=== PATIENT | female | born 1985 | race Caucasian/White ===

== ENCOUNTER 2016-08-25 12:29 | Inpatient (IN) | payer OTHER ==
[2016-08-25 13:15] VITALS: BMI 22.4
--- NOTE | 2016-08-25 17:58 | HP ---
Admission ROS [facility] Chief Complaint: needs rehab to stop using cocaine Allergies/Adverse Reactions: Allergies Allergy/AdvReac Type Severity Reaction Status Date / Time No Known Allergies Allergy Verified 08/25/16 12:59 History of Present Illness: 31 y/o woman with hx. of drug dependence is admitted to rehab.Pt. is currently attending [facility], her attendance is poor therefore needs to be in rehab for cocaine. Exam Limitations: No Limitations - Ebola screening Have you traveled outside of the country in the last 21 days: No Have you had contact with anyone from an Ebola affected area: No Have you been sick,other than usual withdrawal symptoms: No - Review of Systems Constitutional: No Symptoms Reported EENT: reports: No Symptoms Reported Respiratory: reports: Cough Cardiac: reports: No Symptoms Reported GI: reports: Nausea : reports: No Symptoms Reported Musculoskeletal: reports: No Symptoms Reported Integumentary: reports: No Symptoms Reported Neuro: reports: No Symptoms reported Endocrine: reports: No Symptoms Reported Hematology: reports: No Symptoms Reported Psychiatric: reports: No Sypmtoms Reported Other Systems: Reviewed and Negative Patient History - Patient Medical History Hx Anemia: No Hx Asthma: No Hx Chronic Obstructive Pulmonary Disease (COPD): No Hx Cancer: No Hx Cardiac Disorders: No (? murmur) Hx Congestive Heart Failure: No Hx Hypertension: No Hx Hypercholesterolemia: No Hx Pacemaker: No HX Cerebrovascular Accident: No Hx Seizures: No Hx Dementia: No Hx Diabetes: No Hx Gastrointestinal Disorders: No Hx Liver Disease: No Hx Genitourinary Disorders: No Hx Sexually Transmitted Disorders: No Hx Renal Disease (ESRD): No Hx Thyroid Disease: No Hx Human Immunodeficiency Virus (HIV): No Hx Hepatitis C: No Hx Depression: Yes Hx Suicide Attempt: No Hx Bipolar Disorder: No Hx Schizophrenia: No - Patient Surgical History Past Surgical History: Yes Hx Section: Yes (1x) - PPD History Previous Implant?: Yes Documented Results: Negative w/o proof Implanted On Prior [facility] Admission?: No PPD to be Administered?: Yes - Reproductive History Patient is a Female of Child Bearing Age (11 -55 yrs old): Yes Patient : No (pt. is post x 2 months) - Smoking Cessation Smoking history: Current every day smoker Aproximately how many cigarettes per day: 6 Hx Chewing Tobacco Use: No Initiated information on smoking cessation: Yes 'Breaking Loose' booklet given: 08/25/16 - Substance & Tx. History Hx Alcohol Use: No Hx Substance Use: Yes Substance Use Type: Cocaine Hx Substance Use Treatment: Yes (rehab in [facility]) - Substances Abused Crack Route: Smoking Frequency: Daily Amount used: $100.00 Age of first use: 16 Date of Last Use: 08/24/16 Family Disease History - Family Disease History Family Disease History: Diabetes: Grandparent (htn), Heart Disease: Grandparent , Other: Brother (alcohol,cocaine) Admission Physical Exam [facility] - Vital Signs Vital Signs: Vital Signs - 24 hr 08/25/16 12:52 Temperature 97.5 F L Pulse Rate 97 H Respiratory 20 Rate Blood Pressure 114/66 - Physical General Appearance: Yes: Within Normal Limits HEENTM: Yes: Within Normal Limits Respiratory: Yes: Chest Non-Tender, Lungs Clear, Normal Breath Sounds Neck: Yes: Supple Breast: Yes: Breast Exam Deferred Cardiology: Yes: Regular Rhythm, Regular Rate, S1, S2 Abdominal: Yes: Normal Bowel Sounds, Non Tender, Soft Genitourinary: Yes: Within Normal Limits Back: Yes: Within Normal Limits Musculoskeletal: Yes: Within Normal Limits Extremities: Yes: Within Normal Limits Neurological: Yes: Fully Oriented, Alert Integumentary: Yes: Within Normal Limits Lymphatic: Yes: Within Normal Limits - Diagnostic (1) Cocaine dependence, uncomplicated Current Visit: Yes Status: Acute (2) Opioid dependence on agonist therapy Current Visit: Yes Status: Acute Cleared for Admission [facility] - Detox or Rehab Claeared for Rehab Admission: Yes [facility] Breath Alcohol Content Breath Alcohol Content: 0 Urine Pregancy Test - Result Urine Test Results: Negative- NO Line Present Urine Drug Screen - Results Drug Screen Negative: No Urine Drug Screen Results: ZEYAD-Cocaine, OPI-Opiates, MTD-Methadone
[2016-08-25] MEDS ORDERED: MAG HYDROX/AL HYDROX/SIMETH 30 ML UNIT-DOSE CUP PO PRN (18:11)
[2016-08-25] MEDS ORDERED: MAGNESIUM CITRATE 300 ML BOTTLE PO PRN (18:11)
[2016-08-25] MEDS ORDERED: MENTHOL/PHENOL 1 EACH UD MM PRN (18:11)
[2016-08-25] MEDS ORDERED: ACETAMINOPHEN 325 MG TABLET (FP) PO PRN (18:11)
[2016-08-25] MEDS ORDERED: guaiFENesin/D-METHORPHAN HB 10 ML UNIT-DOSE CUPS PO PRN (18:11)
[2016-08-25] MEDS ORDERED: P-EPHED 60MG/TRIPROLIDI 2.5MG TABLET PO PRN (18:11)
[2016-08-25] MEDS ORDERED: LOPERAMIDE HCL 2 MG CAPSULE PO PRN (18:11)
[2016-08-25] MEDS ORDERED: MAGNESIUM HYDROX 2400MG/30ML ORAL SUSPENSION 30 ML CUP PO PRN (18:11)
[2016-08-25] MEDS ORDERED: METHADONE HCL 10 MG TABLET PO ONE (19:30)
[2016-08-25] MEDS: NICOTINE 14 MG/24 HOURS TOPICAL PATCH TD SCH (20:49)
[2016-08-25 22:49] LABS: URINE APPEARANCE SLCLOUDY; URINE BILIRUBIN NEGATIVE (NEGATIVE); URINE COLOR YELLOW; URINE GLUCOSE (UA) NEGATIVE (NEGATIVE); URINE KETONE NEGATIVE (NEGATIVE); URINE LEUK ESTERASE NEGATIVE (NEGATIVE); URINE NITRITE NEGATIVE (NEGATIVE); URINE PROTEIN NEGATIVE (NEGATIVE); URINE UROBILINOGEN NEGATIVE E.U./dl (0.2-1.0)
[2016-08-25 22:57] LABS: URINE BLOOD 1+ (NEGATIVE)
[2016-08-25 23:02] LABS: CALCIUM OXALATE CRYSTALS MANY /hpf (NONE SEEN); URINE MUCUS FEW; URINE RBC 5 /hpf (0-3); URINE WBC 2 /hpf (3-5)
[2016-08-25] MEDS: THIAMINE HCL 100 MG TABLET (FP) PO SCH (23:23)
[2016-08-26] MEDS ORDERED: METHADONE HCL 40 MG DISPERSABLE TABLET PO SCH (06:00)
[2016-08-26] MEDS ORDERED: TUBERCULIN PPD 5 TU/0.1ML VIAL ID ONE (06:27)
[2016-08-26] MEDS: NICOTINE 14 MG/24 HOURS TOPICAL PATCH TD SCH (09:11)
[2016-08-26] MEDS: PRENATAL VITAMINS W/ FOLIC ACID TABLET (FP) PO SCH (09:12)
[2016-08-26] MEDS: IBUPROFEN 400 MG TABLET (FP) PO PRN (09:12)
[2016-08-26 10:02] LABS: MCH 29.2 pg (25.7-33.7); MCHC 32.9 g/dl (32.0-36.0); MEAN CELL VOLUME 88.9 fl (80-96); MEAN PLT VOLUME 10.7 fl (7.5-11.1); PLATELET COUNT 143 K/MM3 (134-434); RDW 13.7 % (11.6-15.6); WHITE BLOOD COUNT 3.7 K/mm3 (4.0-10.0)
[2016-08-26 10:48] LABS: ALBUMIN 3.6 g/dl (3.4-5.0); ALK PHOS 59 U/L (45-117); ANION GAP 9 (8-16); BILIRUBIN,TOTAL 0.2 mg/dL (0.2-1.0); CALCIUM 9.5 mg/dL (8.5-10.1); CO2 29 mmol/L (21-32); GLUCOSE,RANDOM 90 mg/dL (74-106); SGOT/AST 13 U/L (15-37); SGPT/ALT 17 U/L (12-78); TOT PROT 6.4 g/dl (6.4-8.2)
[2016-08-26 11:27] LABS: SICKLE CELL SCREEN NEGATIVE (NEGATIVE)
--- NOTE | 2016-08-26 17:36 | EKG ---
Test Reason : Blood Pressure : / mmHG Vent. Rate : 061 BPM Atrial Rate : 061 BPM P-R Int : 142 ms QRS Dur : 126 ms QT Int : 436 ms P-R-T Axes : 006 048 017 degrees QTc Int : 438 ms NORMAL SINUS RHYTHM NON-SPECIFIC INTRA-VENTRICULAR CONDUCTION BLOCK ABNORMAL ECG WHEN COMPARED WITH ECG OF 25-AUG-2016 20:51, NO SIGNIFICANT CHANGE WAS FOUND Confirmed by NICOLE CANCHOLA, BRENT ([id number]) on 08/26/2016 5:35:48 PM Referred By: Confirmed By:BRENT RIVERA MD
--- NOTE | 2016-08-26 17:37 | EKG ---
Test Reason : Blood Pressure : / mmHG Vent. Rate : 075 BPM Atrial Rate : 075 BPM P-R Int : 146 ms QRS Dur : 132 ms QT Int : 388 ms P-R-T Axes : 036 053 045 degrees QTc Int : 433 ms NORMAL SINUS RHYTHM NON-SPECIFIC INTRA-VENTRICULAR CONDUCTION BLOCK ABNORMAL ECG NO PREVIOUS ECGS AVAILABLE Confirmed by NICOLE CANCHOLA, BRENT ([id number]) on 08/26/2016 5:37:27 PM Referred By: Confirmed By:BRENT RIVERA MD
[2016-08-26] MEDS: THIAMINE HCL 100 MG TABLET (FP) PO SCH (21:23)
[2016-08-26] MEDS: diphenhydrAMINE HCL 50 MG CAPSULE PO PRN (21:24)
[2016-08-27] MEDS ORDERED: METHADONE 40 MG, METHADONE 10 MG PO SCH (06:00)
[2016-08-27] MEDS ORDERED: METHADONE HCL 10 MG TABLET PO SCH (06:00)
[2016-08-27] MEDS ORDERED: METHADONE HCL 10 MG TABLET ONE (06:02)
[2016-08-27] MEDS ORDERED: METHADONE HCL 40 MG DISPERSABLE TABLET ONE (06:02)
[2016-08-27] MEDS: PRENATAL VITAMINS W/ FOLIC ACID TABLET (FP) PO SCH (10:37)
[2016-08-27] MEDS: NICOTINE 14 MG/24 HOURS TOPICAL PATCH TD SCH (10:37)
--- NOTE | 2016-08-27 14:05 | HP ---
Psychiatrist Admission - Data Date of interview: 08/27/16 Admission source: [facility] Identifying data: This is the first admission to [address] [place] [address] for this 31 yo H single mother of 4 (2 months old baby girl resides with her father),patient lost her custody of 3 old kids.She resides with boyfriend,supported by him. Medical History: C section. Psychiatric History: denies Physical/Sexual Abuse/Trauma History: not willing to discuss Vital Signs: Vital Signs - 24 hr 08/27/16 08/27/16 08/27/16 00:30 03:30 06:31 Temperature 98.0 F Pulse Rate 75 Respiratory 18 18 16 Rate Blood Pressure 103/68 Allergies/Adverse Reactions: Allergies Allergy/AdvReac Type Severity Reaction Status Date / Time No Known Allergies Allergy Verified 08/25/16 12:59 Date of last physical exam: 08/25/16 Concur with the findings of this exam: Yes - Substance Abuse/Tx History Hx Alcohol Use: Yes (reports drinking since 8 yo) Hx Substance Use: Yes (heroin and crack/cocaine since 16 yo,(crack $100 daily)) Substance Use Type: Alcohol, Cocaine, Heroin Hx Substance Use Treatment: Yes (completed [employer] program) - Admission Criteria Previous failed treatment: Yes Poor recovery environment: Yes Comorbidities: Yes Lacks judgement: Yes Mental Status Exam - Mental Status Exam Alert and Oriented to: Time, Place, Person Cognitive Function: Grossly Intact Patient Appearance: Unkempt Mood: Anxious, Apprehensive, Irritable Affect: Mood Congruent, Labile Patient Behavior: Restless, Impulsive Speech Pattern: Clear Voice Loudness: Normal Thought Process: Goal Oriented Thought Disorder: Not Present Hallucinations: Denies Suicidal Ideation: Denies Homicidal Ideation: Denies Insight/Judgement: Fair Sleep: Fair Appetite: Fair Muscle strength/Tone: Normal Gait/Station: Normal Psychiatric Findings - Problem List ([place] 1, 2,3) (1) Cocaine dependence, uncomplicated Current Visit: Yes Status: Chronic (2) Opioid dependence on agonist therapy Current Visit: Yes Status: Chronic (3) Alcohol dependence Current Visit: Yes Status: Chronic - Initial Treatment Plan Initial Treatment Plan: will monitor progress.
[2016-08-27] MEDS: THIAMINE HCL 100 MG TABLET (FP) PO SCH (21:41)
[2016-08-28] MEDS ORDERED: METHADONE HCL 40 MG DISPERSABLE TABLET PO SCH (06:00)
[2016-08-28] MEDS ORDERED: METHADONE HCL 40 MG DISPERSABLE TABLET ONE (06:06)
[2016-08-28] MEDS ORDERED: METHADONE HCL 10 MG TABLET ONE (06:06)
[2016-08-28] MEDS: METHADONE 40 MG, METHADONE 20 MG PO SCH (06:34)
[2016-08-28] MEDS: PRENATAL VITAMINS W/ FOLIC ACID TABLET (FP) PO SCH (10:06)
[2016-08-28] MEDS: NICOTINE 14 MG/24 HOURS TOPICAL PATCH TD SCH ×2 (10:06→10:08)
[2016-08-28] MEDS: NICOTINE POLACRILEX 2 MG GUM BUC PRN (10:09)
[2016-08-28] MEDS: diphenhydrAMINE HCL 50 MG CAPSULE PO PRN (21:34)
[2016-08-28] MEDS: THIAMINE HCL 100 MG TABLET (FP) PO SCH (21:34)
[2016-08-29] MEDS ORDERED: METHADONE HCL 10 MG TABLET ONE (05:44)
[2016-08-29] MEDS ORDERED: METHADONE HCL 40 MG DISPERSABLE TABLET ONE (05:44)
[2016-08-29] MEDS: METHADONE 40 MG, METHADONE 20 MG PO SCH (06:47)
[2016-08-29] MEDS: PRENATAL VITAMINS W/ FOLIC ACID TABLET (FP) PO SCH (09:55)
[2016-08-29] MEDS: NICOTINE 14 MG/24 HOURS TOPICAL PATCH TD SCH (09:55)
[2016-08-29] MEDS: NICOTINE POLACRILEX 2 MG GUM BUC PRN ×2 (09:56→21:31)
[2016-08-29] MEDS: THIAMINE HCL 100 MG TABLET (FP) PO SCH (21:30)
[2016-08-29] MEDS: diphenhydrAMINE HCL 50 MG CAPSULE PO PRN (21:30)
[2016-08-30] MEDS ORDERED: METHADONE HCL 10 MG TABLET ONE (03:17)
[2016-08-30] MEDS ORDERED: METHADONE HCL 40 MG DISPERSABLE TABLET ONE (03:17)
[2016-08-30] MEDS: METHADONE 40 MG, METHADONE 20 MG PO SCH (06:43)
[2016-08-30] MEDS: NICOTINE 14 MG/24 HOURS TOPICAL PATCH TD SCH (10:10)
[2016-08-30] MEDS: PRENATAL VITAMINS W/ FOLIC ACID TABLET (FP) PO SCH (10:11)
[2016-08-30] MEDS: NICOTINE POLACRILEX 2 MG GUM BUC PRN (10:13)
[2016-08-30] MEDS: IBUPROFEN 400 MG TABLET (FP) PO PRN (15:19)
[2016-08-30] MEDS: THIAMINE HCL 100 MG TABLET (FP) PO SCH (21:24)
[2016-08-30] MEDS: diphenhydrAMINE HCL 50 MG CAPSULE PO PRN (21:25)
[2016-08-31] MEDS ORDERED: METHADONE HCL 40 MG DISPERSABLE TABLET ONE (05:49)
[2016-08-31] MEDS ORDERED: METHADONE HCL 10 MG TABLET ONE (05:49)
[2016-08-31] MEDS: METHADONE 40 MG, METHADONE 20 MG PO SCH (06:02)
[2016-08-31] MEDS: PRENATAL VITAMINS W/ FOLIC ACID TABLET (FP) PO SCH (10:02)
[2016-08-31] MEDS: NICOTINE 14 MG/24 HOURS TOPICAL PATCH TD SCH (10:02)
[2016-08-31] MEDS: THIAMINE HCL 100 MG TABLET (FP) PO SCH (21:16)
[2016-08-31] MEDS: NICOTINE POLACRILEX 2 MG GUM BUC PRN (21:18)
[2016-08-31] MEDS: diphenhydrAMINE HCL 50 MG CAPSULE PO PRN (21:18)
[2016-09-01] MEDS ORDERED: METHADONE HCL 10 MG TABLET ONE (03:44)
[2016-09-01] MEDS ORDERED: METHADONE HCL 40 MG DISPERSABLE TABLET ONE (03:44)
[2016-09-01] MEDS: METHADONE 40 MG, METHADONE 20 MG PO SCH (06:35)
[2016-09-01 07:19] VITALS: BP 109/72; PULSE 76; TEMP 98.1
--- NOTE | 2016-09-01 09:46 | PN ---
Psychiatric Progress Note Vital Signs: Vital Signs Period Temp Pulse Resp BP Sys/Zapata Pulse Ox Last 24 Hr 98.1 F 76 18-18 109/72 Date of Session: 09/01/16 Chief Complaint:: Discharge visit HPI: Patient addressed Alcohol,Cocaine and Opioid dependence. ROS: unremarkable Current Medications: Active Medications Generic Name Dose Route Start Last Admin Trade Name Freq PRN Reason Stop Dose Admin Acetaminophen 650 mg 08/25/16 18:11 Tylenol - PO Q4H PRN PAIN Al Hydroxide/Mg Hydroxide 30 ml 08/25/16 18:11 Mylanta Oral Suspension - PO Q6H PRN DYSPEPSIA Diphenhydramine HCl 50 mg 08/25/16 22:00 08/31/16 21:18 Benadryl - PO 50 mg HSMR1 PRN Administration INSOMNIA Eucalyptus/Menthol/Phenol/Sorbitol 1 each 08/25/16 18:11 Cepastat Lozenge - MM Q4H PRN SORE THROAT Guaifenesin 10 ml 08/25/16 18:11 Robitussin Dm - PO Q6H PRN COUGH Ibuprofen 400 mg 08/25/16 18:11 08/30/16 15:19 Motrin - PO 400 mg Q6H PRN Administration SEVERE PAIN Loperamide HCl 4 mg 08/25/16 18:11 Imodium - PO Q6H PRN DIARRHEA Magnesium Citrate 300 ml 08/25/16 18:11 Citroma - PO Q48H PRN CONSTIPATION Magnesium Hydroxide 30 ml 08/25/16 18:11 08/26/16 21:24 Milk Of Magnesia - PO 30 ml DAILY PRN Administration CONSTIPATION Methadone HCl 40 mg/ Methadone 60 mg 08/28/16 06:00 09/01/16 06:35 HCl 20 mg PO 09/03/16 05:59 60 mg DAILY@0600 TREMAYNE Administration Nicotine 14 mg 08/25/16 18:15 08/31/16 10:02 Nicoderm Patch - TD 14 mg DAILY TREMAYNE Administration Nicotine Polacrilex 2 mg 08/25/16 18:11 08/31/16 21:18 Nicorette Gum - BUC 2 mg Q2H PRN Administration NICOTINE REPLACEMENT RX Multivit/Folic Acid/Iron 1 tab 08/26/16 10:00 08/31/16 10:02 Vitamins (Sjr) - PO 1 tab DAILY TREMAYNE Administration Pseudoephedrine/Triprolidine 1 combo 08/25/16 18:11 Actifed - PO TID PRN NASAL CONGESTION Thiamine HCl 100 mg 08/25/16 22:00 08/31/16 21:16 Vitamin B1 - PO 100 mg HS TREMAYNE Administration Current Side Effect: No Lab tests ordered: No Lab tests reviewed: Yes Provider note:: Patient completed this program today(early discharge).She has met her treatmnet goals (partially).Patient will continue to address her issues on putpatient basis at [facility] in [facility].Patient identifies areas of difficulties and skills,suports she can utilize to maintain recovery.Supportive therapy provided. Patient is stable for discharge today 09/01/16. Total face to face time:: 30 Mental Status Exam - Mental Status Exam Alert and Oriented to: Time, Place, Person Cognitive Function: Grossly Intact Patient Appearance: Well Groomed Mood: Expansive Affect: Mood Congruent, Labile Patient Behavior: Cooperative Speech Pattern: Clear Voice Loudness: Normal Thought Process: Goal Oriented Thought Disorder: Not Present Hallucinations: Denies Suicidal Ideation: Denies Homicidal Ideation: Denies Insight/Judgement: Fair Sleep: Fair Appetite: Good Muscle strength/Tone: Normal Gait/Station: Normal Psychiatric Treatment Plan - Problem List (1) Cocaine dependence, uncomplicated Current Visit: Yes (2) Opioid dependence on agonist therapy Current Visit: Yes (3) Alcohol dependence Current Visit: Yes
== END 2016-09-01 09:37 | disposition home or self-care (01) | DRG 772 ==
LOC: YASAS 12:29 → Y3E 18:22
PROVIDERS: ADMIT Psychiatry & Neurology Psychiatry; ATTEND Psychiatry & Neurology Psychiatry
PROC: HZ42ZZZ Group Counseling for Substance Abuse Treatment, Cognitive-Behavioral (ICD-10-PCS; principal; 2016-09-01)
DX: F11.20 Opioid dependence, uncomplicated (principal); F10.20 Alcohol dependence, uncomplicated; F14.20 Cocaine dependence, uncomplicated; F17.210 Nicotine dependence, cigarettes, uncomplicated
CPT/HCPCS: 36415; 80053; 81003; 81015; 85027; 85660; 86593; 93005; 93010